=== PATIENT | male | born 1950 | race Caucasian/White ===

== ENCOUNTER 2021-06-11 09:35 | Emergency (ER) | payer BC, OTHER ==
[~2021-06-11] VITALS: Ht 188 cm; Wt 70.8 kg
--- NOTE | 2021-06-11 09:41 | NUR ---
DR BECERRA AT THE BEDSIDE
--- NOTE | 2021-06-11 09:55 | NUR ---
BIBWIFE C/O NAUSEA, VOMITING & DIARRHEA WITH BLOOD X FEW DAYS, DRINKS ALCOHOL EVERYDAY. THE PATIENT IS ALERT AND ORIENTED X3. DENIES PAIN. ABDOMEN SOFT AND NON-DISTENDED. ATTACHED TO THE MONITOR. WARM BLANKET PROVIDED FOR COMFORT. WILL CONTINUE TO MONITOR THE PATIENT.
[2021-06-11] MEDS ORDERED: IV NS 0.9% 1,000 ML BAG IV ONE (10:00)
[2021-06-11] MEDS ORDERED: ONDANSETRON HCL/PF 4 MG/2 ML VIAL IV ONE (10:00)
[2021-06-11] MEDS ORDERED: PANTOPRAZOLE 40 MG VIAL IV ONE (10:00)
[2021-06-11] MEDS ORDERED: ONDANSETRON HCL/PF 4 MG/2 ML VIAL ONE ×2 (10:11→14:39)
[2021-06-11] MEDS ORDERED: FAMOTIDINE/PF INJ 20 MG/2 ML VIAL IV ONE (10:12)
[2021-06-11 10:40] LABS: BASOPHILS # (AUTO) 0.1 K/uL (0.0-0.2); BASOPHILS % (AUTO) 0.5 % (0.0-2.0); EOSINOPHILS % (AUTO) 0.1 % (0.0-6.0); HEMATOCRIT 33 % (39-51); HEMOGLOBIN 10.9 g/dL (13.5-17.5); LYMPHOCYTES % (AUTO) 11.9 % (20.0-44.0); MEAN CORPUSCULAR HGB CONC 34 g/dl (31.0-36.0); MEAN CORPUSCULAR VOLUME 105 fL (80-96); MONOCYTES # (AUTO) 0.5 K/uL (0.1-1.30); MONOCYTES % (AUTO) 3.2 % (2.0-12.0); NEUTROPHILS % (AUTO) 84.3 % (43.0-81.0); PLATELET COUNT (AUTO) 272 K/uL (150-450); WHITE BLOOD COUNT (AUTO) 16.6 K/uL (4.3-11.0)
[2021-06-11 10:56] LABS: ALANINE AMINOTRANSFERASE 10 U/L (12-78); ALBUMIN 3.8 g/dL (3.4-5.0); ALKALINE PHOSPHATASE 53 U/L (46-116); ASPARTATE AMINOTRANSFERASE 11 U/L (15-37); BILIRUBIN,DIRECT 0.1 mg/dL (0.0-0.2); BILIRUBIN,TOTAL 0.6 mg/dL (0.2-1.0); CALCIUM, SERUM 8.9 mg/dL (8.5-10.1); CARBON DIOXIDE 20 mmol/L (21-32); CHLORIDE 108 mmol/L (98-107); CREATININE 1.9 mg/dL (0.6-1.3); GLUCOSE 231 mg/dL (74-106); LIPASE 61 U/L (73-393); POTASSIUM 4.4 mmol/L (3.5-5.1); SODIUM SERUM 143 mmol/L (136-145); TOTAL PROTEIN, SERUM 6.8 g/dL (6.4-8.2); UREA NITROGEN, BLOOD 55 mg/dL (7-18)
[2021-06-11 11:07] LABS: ALCOHOL, BLOOD < 3 mg/dL (0-0)
--- NOTE | 2021-06-11 11:14 | NUR ---
COVID SWAB DONE AND SENT TO THE LAB
--- NOTE | 2021-06-11 11:53 | NUR ---
CALLED [facility] [phone]
--- NOTE | 2021-06-11 11:56 | NUR ---
DR. HUANG FROM [facility] SPEAKING WITH DR. BECERRA.
--- NOTE | 2021-06-11 13:16 | NUR ---
TRANSFER INFO: PATIENT IS ACCEPTED AT [facility] ER UNDER [facility]. [facility] PHONE # FOR REPORT: [phone] AMBULANCE ETA: 1500
[2021-06-11 13:52] LABS: OCCULT BLOOD STOOL POSITIVE (NEGATIVE)
--- NOTE | 2021-06-11 14:29 | NUR ---
RECEIVED AN ORDER FROM DR HERNAN LEWIS 4 MG IV PUSH ONCE. THE ORDER IS READ BACK, VERIFIED. NOTED AND CARRIED OUT.
[2021-06-11] MEDS ORDERED: ONDANSETRON HCL/PF - ER 4 MG/2 ML VIAL IV ONE (14:30)
--- NOTE | 2021-06-11 14:37 | NUR ---
REPORT GIVEN TO NURSE LAN FROM [facility].
[2021-06-11 14:40] VITALS: BP 146/58
--- NOTE | 2021-06-11 16:03 | NUR ---
THE PATIENT IS DISCHARGED TO [facility] IN STABLE CONDITION VIA RRANGED TRANSPO
== END 2021-06-11 16:05 | disposition short-term general hospital (02) ==
LOC: ER 09:40
DX: K92.2 Gastrointestinal hemorrhage, unspecified (principal); R00.0 Tachycardia, unspecified; F10.10 Alcohol abuse, uncomplicated; Y90.0 Blood alcohol level of less than 20 mg/100 ml; N17.9 Acute kidney failure, unspecified; Z20.822 Contact with and (suspected) exposure to COVID-19; E87.2 Acidosis; R73.9 Hyperglycemia, unspecified; D53.9 Nutritional anemia, unspecified; D72.829 Elevated white blood cell count, unspecified; I95.9 Hypotension, unspecified; Z86.19 Personal history of other infectious and parasitic diseases; Z90.49 Acquired absence of other specified parts of digestive tract
CPT/HCPCS: 36415; 71045; 80048; 80076; 80320; 82272; 82962; 83690; 85025; 85730; 86850; 87426; 93005; 96361; 96374; 96375; 96376; 99291; C9803; J2405 ×3; J3490; J7030; G0480

== ENCOUNTER 2024-02-09 18:22 | Emergency (ER) | payer OTHER ==
[~2024-02-09] VITALS: Ht 188 cm; Wt 73.5 kg
[2024-02-09 18:43] LABS: BASOPHILS % (AUTO) 0.6 % (0.0-2.0); EOSINOPHILS # (AUTO) 0.5 K/uL (0.0-0.7); EOSINOPHILS % (AUTO) 5.8 % (0.0-6.0); HEMATOCRIT 44 % (39-51); HEMOGLOBIN 14.9 g/dL (13.5-17.5); LYMPHOCYTES # (AUTO) 3.2 K/uL (0.8-4.8); LYMPHOCYTES % (AUTO) 39.3 % (20.0-44.0); MEAN CORPUSCULAR HEMOGLOBIN 35 PG (26.0-33.0); MEAN CORPUSCULAR HGB CONC 34 g/dl (31.0-36.0); MEAN CORPUSCULAR VOLUME 104 fL (80-96); MONOCYTES # (AUTO) 0.5 K/uL (0.1-1.30); NEUTROPHILS # (AUTO) 3.9 K/uL (1.8-8.9); NEUTROPHILS % (AUTO) 48.3 % (43.0-81.0); PLATELET COUNT (AUTO) 271 K/uL (150-450); RED BLOOD CELL COUNT(AUTO) 4.25 MIL/uL (4.5-6.0); RED CELL DISTRIBUTION WIDTH 14.3 % (11.5-15.0); WHITE BLOOD COUNT (AUTO) 8.1 K/uL (4.3-11.0)
[2024-02-09] MEDS ORDERED: LORAZEPAM INJ 2 MG/ML VIAL ONE (18:43)
[2024-02-09] MEDS ORDERED: METOPROLOL TARTRATE INJ 5 MG/5 ML AMPUL ONE (18:44)
[2024-02-09] MEDS: LORAZEPAM INJ 2 MG/ML VIAL IV ONE (18:51)
[2024-02-09] MEDS: METOPROLOL TARTRATE INJ 5 MG/5 ML AMPUL IV ONE (18:51)
[2024-02-09 18:52] LABS: CARBON DIOXIDE 21 mmol/L (21-32); CHLORIDE 100 mmol/L (98-107); GLUCOSE 92 mg/dL (74-106); POTASSIUM 3.9 mmol/L (3.5-5.1); SODIUM SERUM 134 mmol/L (136-145); UREA NITROGEN, BLOOD 20 mg/dL (7-18)
[2024-02-09 19:08] LABS: NT-PRO BNP 4701 pg/mL (0-125)
[2024-02-09] MEDS ORDERED: IV NS 0.9% 250 ML IV ONE (19:11)
[2024-02-09] MEDS ORDERED: IOHEXOL-350 100 ML VIAL IV ONE (19:11)
[2024-02-09 19:14] LABS: CALCIUM, SERUM 9.6 mg/dL (8.5-10.1)
[2024-02-09 19:37] LABS: THYROID STIMULATING HORMONE 7.388 uIU/mL (0.358-3.74)
[2024-02-09] MEDS ORDERED: ASPIRIN 325 MG TABLET ONE (21:26)
[2024-02-09] MEDS: ASPIRIN 325 MG TABLET PO ONE (21:27)
[2024-02-09 23:26] VITALS: BP 105/60; TEMP 98.1; O2SAT 96
== END 2024-02-09 23:27 | disposition short-term general hospital (02) ==
LOC: ER 18:24
DX: G45.9 Transient cerebral ischemic attack, unspecified (principal); I48.91 Unspecified atrial fibrillation; N17.9 Acute kidney failure, unspecified; Z98.890 Other specified postprocedural states
CPT/HCPCS: 99291; 70498; 96374; 71045; 96375; 99292; 93005; 70496; 85025; 80048; 36415; 84439; 84443; 84484; 83880; J2060; J3490; J7050; Q9967

== ENCOUNTER 2024-03-03 12:18 | Emergency (ER) | payer OTHER ==
[~2024-03-03] VITALS: Ht 193 cm; Wt 68.5 kg
[2024-03-03 12:50] LABS: BASOPHILS # (AUTO) 0.2 K/uL (0.0-0.2); BASOPHILS % (AUTO) 1.2 % (0.0-2.0); EOSINOPHILS # (AUTO) 0.2 K/uL (0.0-0.7); EOSINOPHILS % (AUTO) 1.8 % (0.0-6.0); HEMATOCRIT 32 % (39-51); HEMOGLOBIN 10.8 g/dL (13.5-17.5); LYMPHOCYTES # (AUTO) 3.1 K/uL (0.8-4.8); LYMPHOCYTES % (AUTO) 24.4 % (20.0-44.0); MEAN CORPUSCULAR HEMOGLOBIN 34 PG (26.0-33.0); MEAN CORPUSCULAR HGB CONC 33 g/dl (31.0-36.0); MEAN CORPUSCULAR VOLUME 103 fL (80-96); MONOCYTES # (AUTO) 0.5 K/uL (0.1-1.30); NEUTROPHILS # (AUTO) 8.8 K/uL (1.8-8.9); NEUTROPHILS % (AUTO) 68.6 % (43.0-81.0); PLATELET COUNT (AUTO) 243 K/uL (150-450); RED BLOOD CELL COUNT(AUTO) 3.13 MIL/uL (4.5-6.0); RED CELL DISTRIBUTION WIDTH 13.2 % (11.5-15.0); WHITE BLOOD COUNT (AUTO) 12.8 K/uL (4.3-11.0)
[2024-03-03 13:16] LABS: CALCIUM, SERUM 9.2 mg/dL (8.5-10.1); CARBON DIOXIDE 19 mmol/L (21-32); CHLORIDE 104 mmol/L (98-107); CREATININE 1.9 mg/dL (0.6-1.3); GLUCOSE 153 mg/dL (74-106); POTASSIUM 4.7 mmol/L (3.5-5.1); SODIUM SERUM 139 mmol/L (136-145); UREA NITROGEN, BLOOD 56 mg/dL (7-18)
[2024-03-03] MEDS ORDERED: ONDA4TAB5 PO (13:37)
[2024-03-03 13:44] VITALS: BP 112/66; TEMP 98; O2SAT 99
== END 2024-03-03 13:46 | disposition home or self-care (01) ==
LOC: ER 12:23
DX: F10.10 Alcohol abuse, uncomplicated (principal); R11.0 Nausea; Y90.9 Presence of alcohol in blood, level not specified
CPT/HCPCS: 36415; 71045-TC; 80048-TC; 84484-TC; 85025-TC

== ENCOUNTER 2024-03-04 17:55 | Inpatient (IN) | payer OTHER ==
[~2024-03-04] VITALS: Ht 188 cm; Wt 77.6 kg
[~2024-03-04 17:55] MED LIST: ONDA4TAB5 PO
[2024-03-04] MEDS: IV NS 0.9% 1,000 ML BAG IV ONE (18:47)
[2024-03-04 19:05] LABS: BASOPHILS # (AUTO) 0.1 K/uL (0.0-0.2); EOSINOPHILS % (AUTO) 0.1 % (0.0-6.0); LYMPHOCYTES # (AUTO) 1.3 K/uL (0.8-4.8); MONOCYTES # (AUTO) 0.5 K/uL (0.1-1.30); NEUTROPHILS # (AUTO) 11.3 K/uL (1.8-8.9)
[2024-03-04 19:08] LABS: BASOPHILS % (AUTO) 0.4 % (0.0-2.0); HEMATOCRIT 21 % (39-51); LYMPHOCYTES % (AUTO) 10.1 % (20.0-44.0); MEAN CORPUSCULAR HEMOGLOBIN 35 PG (26.0-33.0); MEAN CORPUSCULAR HGB CONC 33 g/dl (31.0-36.0); MEAN CORPUSCULAR VOLUME 105 fL (80-96); MONOCYTES % (AUTO) 4.1 % (2.0-12.0); NEUTROPHILS % (AUTO) 85.3 % (43.0-81.0); PLATELET COUNT (AUTO) 175 K/uL (150-450); RED BLOOD CELL COUNT(AUTO) 1.96 MIL/uL (4.5-6.0); RED CELL DISTRIBUTION WIDTH 13.5 % (11.5-15.0); WHITE BLOOD COUNT (AUTO) 13.3 K/uL (4.3-11.0)
[2024-03-04 19:10] LABS: HEMOGLOBIN 6.8 g/dL (13.5-17.5)
[2024-03-04 19:19] LABS: ALANINE AMINOTRANSFERASE 17 U/L (12-78); ALBUMIN 3.1 g/dL (3.4-5.0); ALKALINE PHOSPHATASE 40 U/L (46-116); ASPARTATE AMINOTRANSFERASE 11 U/L (15-37); BILIRUBIN,DIRECT 0.1 mg/dL (0.0-0.2); BILIRUBIN,TOTAL 0.2 mg/dL (0.2-1.0); CARBON DIOXIDE 19 mmol/L (21-32); CHLORIDE 109 mmol/L (98-107); CREATININE 2.2 mg/dL (0.6-1.3); GLUCOSE 129 mg/dL (74-106); SODIUM SERUM 138 mmol/L (136-145); TOTAL PROTEIN, SERUM 5.7 g/dL (6.4-8.2); UREA NITROGEN, BLOOD 79 mg/dL (7-18)
[2024-03-04 19:22] LABS: INR 1.07 (0.91-1.10); PARTIAL THROMBOPLASTIN TIME 25.9 SEC (24.3-34.3)
[2024-03-04] MEDS ORDERED: FAMOTIDINE/PF INJ 20 MG/2 ML VIAL IV ONE (20:36)
[2024-03-04] MEDS ORDERED: PANTOPRAZOLE 40 MG VIAL ONE ×2 (20:36→20:56)
[2024-03-04] MEDS: PANTOPRAZOLE 80 MG in IV NS 0.9% 100 ML IV ONE ×2 (20:47→20:50)
[2024-03-04] MEDS: PANTOPRAZOLE 40 MG VIAL IV ONE (20:47)
[2024-03-04] MEDS: FAMOTIDINE/PF INJ 40 MG in IV D5W 50 ML IV ONE (20:54)
[2024-03-04] MEDS: PANTOPRAZOLE 80 MG in IV NS 0.9% 500 ML IV PRN (21:17)
[2024-03-04] MEDS ORDERED: HUM PROTHROMBIN CPLX(PCC)-LANS 500 UNIT VIAL IV ONE (21:30)
[2024-03-04] MEDS: HUM PROTHROMBIN CPLX(PCC)-LANS 500 UNIT VIAL IV ONE (21:41)
[2024-03-04 22:14] LABS: BAND % (MANUAL) 1 % (0.0-5.0); LYMPHOCYTES % (MANUAL) 10 % (16-48); MONOCYTES % (MANUAL) 5 % (0-11.0); NEUTROPHILS % (MANUAL) 84 (42-76)
[2024-03-04 22:15] LABS: ANISOCYTOSIS 1+; PLATELET ESTIMATE ADEQU; TARGET CELLS 1+; TEAR DROP CELLS RARE
[2024-03-04] MEDS: IV NS 0.9% 1,000 ML IV PRN (23:04)
[2024-03-04 23:30] VITALS: BP 79/54; O2SAT 100
[2024-03-04 23:32] LABS: HEMOGLOBIN 5.8 g/dL (13.5-17.5)
[2024-03-04 23:36] VITALS: BP 85/60; O2SAT 100
[2024-03-04 23:40] LABS: ALBUMIN 2.6 g/dL (3.4-5.0); BILIRUBIN,DIRECT 0.1 mg/dL (0.0-0.2); BILIRUBIN,TOTAL 0.2 mg/dL (0.2-1.0); TOTAL PROTEIN, SERUM 5.2 g/dL (6.4-8.2)
[2024-03-04] MEDS: OCTREOTIDE 500 MCG/ML VIAL ONE (23:42)
[2024-03-04] MEDS: OCTREOTIDE 1,250 MCG in IV NS 0.9% 247.5 ML IV PRN (23:47)
[2024-03-05] VITALS (81 sets, daily range): BP systolic 77–127; BP diastolic 48–95; TEMP 97.3–98.8; O2SAT 95–100
[2024-03-05] MEDS ORDERED: AMIO200T5 PO (01:13)
[2024-03-05] MEDS ORDERED: PANT40TA49 PO (01:13)
[2024-03-05] MEDS ORDERED: DABI150C PO (01:13)
[2024-03-05] MEDS ORDERED: ATOR40TA PO (01:13)
[2024-03-05] MEDS ORDERED: METO25TA6 PO (01:13)
[2024-03-05] MEDS ORDERED: ONDA4TAB5 PO (01:13)
[2024-03-05] MEDS: PIPERACILLIN /TAZOBACTAM 3.375 G in IVPB D5W FOR ZOSYN 50 ML IV ONE (03:29)
[2024-03-05] MEDS: PIPERACI/TAZO 3.375GM/D5W 50ML PB IV ONE (03:42)
[2024-03-05] MEDS: ONDANSETRON HCL/PF 4 MG/2 ML VIAL IVP PRN (03:43)
[2024-03-05] MEDS ORDERED: MIDAZOLAM HCL 2 MG/2ML VIAL ONE (05:48)
[2024-03-05 05:50] LABS: BASOPHILS # (AUTO) 0.1 K/uL (0.0-0.2); EOSINOPHILS % (AUTO) 0.3 % (0.0-6.0); LYMPHOCYTES # (AUTO) 1.4 K/uL (0.8-4.8); LYMPHOCYTES % (AUTO) 15.5 % (20.0-44.0); MEAN CORPUSCULAR HEMOGLOBIN 33 PG (26.0-33.0); MEAN CORPUSCULAR HGB CONC 34 g/dl (31.0-36.0); MEAN CORPUSCULAR VOLUME 98 fL (80-96); MONOCYTES # (AUTO) 0.5 K/uL (0.1-1.30); MONOCYTES % (AUTO) 5.2 % (2.0-12.0); NEUTROPHILS # (AUTO) 7.1 K/uL (1.8-8.9); PLATELET COUNT (AUTO) 138 K/uL (150-450); RED CELL DISTRIBUTION WIDTH 19.6 % (11.5-15.0); WHITE BLOOD COUNT (AUTO) 9.1 K/uL (4.3-11.0)
[2024-03-05 06:14] LABS: RED BLOOD CELL COUNT(AUTO) 1.87 MIL/uL (4.5-6.0)
[2024-03-05 06:15] LABS: CALCIUM, SERUM 7.2 mg/dL (8.5-10.1); CARBON DIOXIDE 23 mmol/L (21-32); CHLORIDE 112 mmol/L (98-107); CREATININE 2.1 mg/dL (0.6-1.3); GLUCOSE 114 mg/dL (74-106); MAGNESIUM 1.7 mg/dL (1.8-2.4); PHOSPHORUS 4.1 mg/dL (2.5-4.9); POTASSIUM 4.8 mmol/L (3.5-5.1); SODIUM SERUM 142 mmol/L (136-145); UREA NITROGEN, BLOOD 67 mg/dL (7-18)
[2024-03-05 06:16] LABS: HEMATOCRIT 18 % (39-51); HEMOGLOBIN 6.2 g/dL (13.5-17.5)
[2024-03-05] MEDS ORDERED: FLUMAZENIL 0.5 MG VIAL ONE (06:28)
[2024-03-05 06:48] LABS: NEUTROPHILS % (MANUAL) 81 (42-76)
[2024-03-05 06:49] LABS: ANISOCYTOSIS 1+; BASOPHILS % (MANUAL) 0 % (0.0-2.0); EOSINOPHILS % (MANUAL) 0 % (0-4); LYMPHOCYTES % (MANUAL) 13 % (16-48); MONOCYTES % (MANUAL) 6 % (0-11.0); PLATELET ESTIMATE DECREASED
[2024-03-05 07:52] LABS: APPEARANCE,URINE CLEAR (CLEAR); BILIRUBIN,URINE NEGATIVE (NEGATIVE); BLOOD, URINE NEGATIVE Ery/uL (NEGATIVE); COLOR,URINE YELLOW (YELLOW); KETONES,URINE TRACE mg/dL (NEGATIVE); LEUKOCYTE ESTERASE ,URINE TRACE (NEGATIVE); NITRITE, URINE NEGATIVE (NEGATIVE); PH,URINE 5.5 (5.0-8.0); PROTEIN,URINE NEGATIVE (NEGATIVE); UGLUCOSE NEGATIVE (NEGATIVE); UROBILINOGEN,URINE 0.2 EU/dL (0.2)
[2024-03-05] MEDS: PIPERACILLIN /TAZOBACTAM 3.375 G in IV D5W 100 ML IV SCH (07:56)
[2024-03-05 07:58] LABS: ADD URINE CULTURE NO; BACTERIA,URINE Rare /HPF (None Seen); RBC,URINE 0-2 /HPF (0-2); SQUAMOUS EPITHELIAL CELL,UR Rare /HPF (None Seen)
[2024-03-05] MEDS: PANTOPRAZOLE 40 MG VIAL IV SCH (08:04)
[2024-03-05] MEDS: Magnesium 1GM/D5W 100ML PREMIX 100 ML IV SCH (09:29)
[2024-03-05 09:41] LABS: CREATININE, URINE 60.1 MG/DL (30.0-125.0); URINE TOTAL PROTEIN 13.4 mg/dL (0-11.9)
[2024-03-05 10:19] LABS: HEMOGLOBIN 6.6 g/dL (13.5-17.5)
[2024-03-05] MEDS: PROCHLORPERAZINE EDISYLATE 10 MG/2 ML VIAL IVP PRN (12:22)
[2024-03-05 15:30] LABS: BASOPHILS # (AUTO) 0.1 K/uL (0.0-0.2); BASOPHILS % (AUTO) 0.8 % (0.0-2.0); EOSINOPHILS # (AUTO) 0.1 K/uL (0.0-0.7); EOSINOPHILS % (AUTO) 0.8 % (0.0-6.0); HEMATOCRIT 23 % (39-51); HEMOGLOBIN 7.6 g/dL (13.5-17.5); LYMPHOCYTES % (AUTO) 14.4 % (20.0-44.0); MEAN CORPUSCULAR HEMOGLOBIN 33 PG (26.0-33.0); MEAN CORPUSCULAR HGB CONC 34 g/dl (31.0-36.0); MEAN CORPUSCULAR VOLUME 99 fL (80-96); MONOCYTES # (AUTO) 0.9 K/uL (0.1-1.30); MONOCYTES % (AUTO) 6.8 % (2.0-12.0); NEUTROPHILS # (AUTO) 10.5 K/uL (1.8-8.9); NEUTROPHILS % (AUTO) 77.2 % (43.0-81.0); PLATELET COUNT (AUTO) 121 K/uL (150-450); RED BLOOD CELL COUNT(AUTO) 2.29 MIL/uL (4.5-6.0); RED CELL DISTRIBUTION WIDTH 18.6 % (11.5-15.0); WHITE BLOOD COUNT (AUTO) 13.6 K/uL (4.3-11.0)
[2024-03-05] MEDS ORDERED: THIA100T74 PO (19:20)
[2024-03-05] MEDS ORDERED: TEMA7.5C12 PO (19:20)
[2024-03-05] MEDS ORDERED: FOLI0.4T6 PO (19:20)
[2024-03-05] MEDS ORDERED: CEPH250C PO (19:23)
[2024-03-05 20:23] LABS: BASOPHILS # (AUTO) 0.1 K/uL (0.0-0.2); EOSINOPHILS # (AUTO) 0.1 K/uL (0.0-0.7); EOSINOPHILS % (AUTO) 1.2 % (0.0-6.0); LYMPHOCYTES # (AUTO) 1.3 K/uL (0.8-4.8); LYMPHOCYTES % (AUTO) 13.3 % (20.0-44.0); MEAN CORPUSCULAR HEMOGLOBIN 34 PG (26.0-33.0); MEAN CORPUSCULAR HGB CONC 35 g/dl (31.0-36.0); MEAN CORPUSCULAR VOLUME 96 fL (80-96); MONOCYTES # (AUTO) 0.6 K/uL (0.1-1.30); MONOCYTES % (AUTO) 6.2 % (2.0-12.0); NEUTROPHILS # (AUTO) 7.7 K/uL (1.8-8.9); NEUTROPHILS % (AUTO) 78.3 % (43.0-81.0); PLATELET COUNT (AUTO) 111 K/uL (150-450); RED CELL DISTRIBUTION WIDTH 18.3 % (11.5-15.0); WHITE BLOOD COUNT (AUTO) 9.8 K/uL (4.3-11.0)
[2024-03-05 20:29] LABS: RED BLOOD CELL COUNT(AUTO) 1.89 MIL/uL (4.5-6.0)
[2024-03-05 20:40] LABS: HEMOGLOBIN 6.4 g/dL (13.5-17.5)
[2024-03-05 20:41] LABS: HEMATOCRIT 18 % (39-51)
[2024-03-05] MEDS ORDERED: TEMA15CA PO (20:50)
[2024-03-05 20:52] LABS: BAND % (MANUAL) 2 % (0.0-5.0); LYMPHOCYTES % (MANUAL) 15 % (16-48); MONOCYTES % (MANUAL) 6 % (0-11.0)
[2024-03-05 20:53] LABS: EOSINOPHILS % (MANUAL) 1 % (0-4); NEUTROPHILS % (MANUAL) 76 (42-76)
[2024-03-05 20:54] LABS: PLATELET ESTIMATE DECREASED
[2024-03-05] MEDS: TEMAZEPAM 15 MG CAPSULE PO PRN (21:40)
[2024-03-06] VITALS (74 sets, daily range): BP systolic 74–125; BP diastolic 49–80; TEMP 97.5–99.1; O2SAT 96–100
[2024-03-06] MEDS: NOREPINEPHRINE 8MG/250ML RTU 250 ML IV ONE (05:06)
[2024-03-06] MEDS: NOREPINEPHRINE 8 MG in IV D5W 242 ML IV PRN (05:08)
[2024-03-06 05:14] LABS: BASOPHILS # (AUTO) 0.1 K/uL (0.0-0.2); BASOPHILS % (AUTO) 0.8 % (0.0-2.0); EOSINOPHILS # (AUTO) 0.2 K/uL (0.0-0.7); EOSINOPHILS % (AUTO) 2.3 % (0.0-6.0); HEMATOCRIT 21 % (39-51); HEMOGLOBIN 7.3 g/dL (13.5-17.5); LYMPHOCYTES # (AUTO) 1.3 K/uL (0.8-4.8); LYMPHOCYTES % (AUTO) 14.1 % (20.0-44.0); MEAN CORPUSCULAR HEMOGLOBIN 33 PG (26.0-33.0); MEAN CORPUSCULAR HGB CONC 36 g/dl (31.0-36.0); MEAN CORPUSCULAR VOLUME 93 fL (80-96); MONOCYTES # (AUTO) 0.7 K/uL (0.1-1.30); MONOCYTES % (AUTO) 8.1 % (2.0-12.0); NEUTROPHILS # (AUTO) 6.7 K/uL (1.8-8.9); NEUTROPHILS % (AUTO) 74.7 % (43.0-81.0); PLATELET COUNT (AUTO) 97 K/uL (150-450); RED BLOOD CELL COUNT(AUTO) 2.22 MIL/uL (4.5-6.0); RED CELL DISTRIBUTION WIDTH 17.8 % (11.5-15.0)
[2024-03-06 06:18] LABS: CREATINE KINASE, TOTAL 41 U/L (39-308)
[2024-03-06 06:37] LABS: ALANINE AMINOTRANSFERASE 12 U/L (12-78); ALKALINE PHOSPHATASE 35 U/L (46-116); ASPARTATE AMINOTRANSFERASE 9 U/L (15-37); BILIRUBIN,TOTAL 0.6 mg/dL (0.2-1.0); CALCIUM, SERUM 7.5 mg/dL (8.5-10.1); CARBON DIOXIDE 20 mmol/L (21-32); CHLORIDE 114 mmol/L (98-107); CREATININE 1.6 mg/dL (0.6-1.3); GLUCOSE 114 mg/dL (74-106); PHOSPHORUS 3.5 mg/dL (2.5-4.9); POTASSIUM 4.3 mmol/L (3.5-5.1); SODIUM SERUM 144 mmol/L (136-145); TOTAL PROTEIN, SERUM 4.2 g/dL (6.4-8.2); UREA NITROGEN, BLOOD 44 mg/dL (7-18)
[2024-03-06 13:28] LABS: HEMOGLOBIN 6.8 g/dL (13.5-17.5)
[2024-03-07] VITALS (74 sets, daily range): BP systolic 79–130; BP diastolic 49–80; TEMP 97.5–98.8; O2SAT 94–100
[2024-03-07] MEDS: ACETAMINOPHEN 325 MG TABLET PO PRN (01:08)
[2024-03-07 07:53] LABS: BASOPHILS % (AUTO) 0.5 % (0.0-2.0); EOSINOPHILS # (AUTO) 0.1 K/uL (0.0-0.7); EOSINOPHILS % (AUTO) 1.5 % (0.0-6.0); HEMATOCRIT 23 % (39-51); LYMPHOCYTES # (AUTO) 1.2 K/uL (0.8-4.8); LYMPHOCYTES % (AUTO) 13.9 % (20.0-44.0); MEAN CORPUSCULAR HEMOGLOBIN 32 PG (26.0-33.0); MEAN CORPUSCULAR HGB CONC 34 g/dl (31.0-36.0); MEAN CORPUSCULAR VOLUME 94 fL (80-96); MONOCYTES # (AUTO) 0.7 K/uL (0.1-1.30); NEUTROPHILS # (AUTO) 6.6 K/uL (1.8-8.9); NEUTROPHILS % (AUTO) 76.1 % (43.0-81.0); PLATELET COUNT (AUTO) 108 K/uL (150-450); RED CELL DISTRIBUTION WIDTH 17.7 % (11.5-15.0); WHITE BLOOD COUNT (AUTO) 8.6 K/uL (4.3-11.0)
[2024-03-07 08:02] LABS: CALCIUM, SERUM 7.8 mg/dL (8.5-10.1); CARBON DIOXIDE 23 mmol/L (21-32); CHLORIDE 114 mmol/L (98-107); CREATININE 1.7 mg/dL (0.6-1.3); GLUCOSE 97 mg/dL (74-106); POTASSIUM 3.6 mmol/L (3.5-5.1); SODIUM SERUM 143 mmol/L (136-145); UREA NITROGEN, BLOOD 28 mg/dL (7-18)
[2024-03-07 08:06] LABS: PTH, INTACT 78 pg/mL (15-65)
[2024-03-07] MEDS ORDERED: CYCLOBENZAPRINE 10 MG TABLET PO PRN (09:00)
[2024-03-07 14:54] LABS: BASOPHILS # (AUTO) 0.1 K/uL (0.0-0.2); BASOPHILS % (AUTO) 0.9 % (0.0-2.0); EOSINOPHILS # (AUTO) 0.1 K/uL (0.0-0.7); EOSINOPHILS % (AUTO) 1.5 % (0.0-6.0); HEMATOCRIT 23 % (39-51); HEMOGLOBIN 8.2 g/dL (13.5-17.5); LYMPHOCYTES # (AUTO) 1.5 K/uL (0.8-4.8); LYMPHOCYTES % (AUTO) 18.2 % (20.0-44.0); MEAN CORPUSCULAR HEMOGLOBIN 33 PG (26.0-33.0); MEAN CORPUSCULAR HGB CONC 35 g/dl (31.0-36.0); MEAN CORPUSCULAR VOLUME 95 fL (80-96); MONOCYTES # (AUTO) 0.6 K/uL (0.1-1.30); NEUTROPHILS # (AUTO) 6.1 K/uL (1.8-8.9); NEUTROPHILS % (AUTO) 72.4 % (43.0-81.0); PLATELET COUNT (AUTO) 116 K/uL (150-450); RED BLOOD CELL COUNT(AUTO) 2.46 MIL/uL (4.5-6.0); RED CELL DISTRIBUTION WIDTH 17.9 % (11.5-15.0); WHITE BLOOD COUNT (AUTO) 8.5 K/uL (4.3-11.0)
[2024-03-07 15:10] LABS: *SPE A/G RATIO 1.4 (0.7-1.7); *SPE ALBUMIN 2.3 g/dL (2.9-4.4); *SPE ALPHA-1-GLOBULIN 0.2 g/dL (0.0-0.4); *SPE ALPHA-2-GLOBULIN 0.3 g/dL (0.4-1.0); *SPE BETA GLOBULIN 0.6 g/dL (0.7-1.3); *SPE GLOBULIN, TOTAL 1.7 g/dL (2.2-3.9); *SPE M-SPIKE Not Observed g/dL (Not Observed); *SPEGAMMA GLOBULIN 0.5 g/dL (0.4-1.8)
[2024-03-07 15:24] LABS: CALCIUM, SERUM 8.1 mg/dL (8.5-10.1); CARBON DIOXIDE 20 mmol/L (21-32); CHLORIDE 115 mmol/L (98-107); CREATININE 1.4 mg/dL (0.6-1.3); GLUCOSE 88 mg/dL (74-106); POTASSIUM 4.3 mmol/L (3.5-5.1); SODIUM SERUM 145 mmol/L (136-145); UREA NITROGEN, BLOOD 24 mg/dL (7-18)
== END 2024-03-07 19:00 | disposition short-term general hospital (02) | DRG 377 ==
LOC: ER 18:04 → ICU 21:44 → UNDODISIN 03-07 20:23
PROVIDERS: ADMIT Nurse Practitioner Acute Care; ATTEND Internal Medicine
PROC: 0DB68ZX Excision of Stomach, Via Natural or Artificial Opening Endoscopic, Diagnostic (ICD-10-PCS; principal; 2024-03-05)
PROC: 30233N1 Transfusion of Nonautologous Red Blood Cells into Peripheral Vein, Percutaneous Approach (ICD-10-PCS; 2024-03-05)
DX: K29.71 Gastritis, unspecified, with bleeding (principal); N17.0 Acute kidney failure with tubular necrosis; R57.1 Hypovolemic shock; E44.1 Mild protein-calorie malnutrition; D68.9 Coagulation defect, unspecified; N18.9 Chronic kidney disease, unspecified; I48.91 Unspecified atrial fibrillation; Z86.73 Personal history of transient ischemic attack (TIA), and cerebral infarction without residual deficits; Z87.19 Personal history of other diseases of the digestive system; Z86.19 Personal history of other infectious and parasitic diseases; Z98.890 Other specified postprocedural states; Z90.49 Acquired absence of other specified parts of digestive tract; F10.10 Alcohol abuse, uncomplicated; Y90.0 Blood alcohol level of less than 20 mg/100 ml; D72.829 Elevated white blood cell count, unspecified; D64.9 Anemia, unspecified; E88.09 Other disorders of plasma-protein metabolism, not elsewhere classified; I09.89 Other specified rheumatic heart diseases; Z79.02 Long term (current) use of antithrombotics/antiplatelets; Z87.11 Personal history of peptic ulcer disease
CPT/HCPCS: 36415; 71045-TC; 76700-TC; 80048-TC; 80053-TC; 80076-TC; 81001; 82550-TC; 82570-TC; 82962-TC; 83735-TC; 83970; 84100-TC; 84155; 84165; 84300-TC; 84484-TC; 85025-TC; 85027-TC; 85730-TC; 86850-TC; 87040-TC; 87081-TC; 87086-TC; 88305-TC; 88313-TC; 88342; 93307-TC; 94799-TC; A4223; A9560; C9113; G0378; G0480; J0780; J2250; J2354; J2405; J2543; J2704; J3475; J3490; J7030; J7040; J7050; J7060; J7209; P9016

== ENCOUNTER 2024-07-18 17:32 | Emergency (ER) | payer OTHER ==
[~2024-07-18] VITALS: Ht 188 cm; Wt 77.1 kg
[~2024-07-18 17:32] MED LIST changes: +AMIO200T5 PO; +ATOR40TA PO; +CEPH250C PO; +DABI150C PO; +FOLI0.4T6 PO; +METO25TA6 PO; +PANT40TA49 PO; +TEMA15CA PO; +THIA100T74 PO
[2024-07-18 17:46] VITALS: TEMP 97.8
[2024-07-18 18:19] LABS: BASOPHILS # (AUTO) 0.1 K/uL (0.0-0.2); EOSINOPHILS # (AUTO) 0.6 K/uL (0.0-0.7); EOSINOPHILS % (AUTO) 7.2 % (0.0-6.0); HEMATOCRIT 27 % (39-51); HEMOGLOBIN 9.1 g/dL (13.5-17.5); LYMPHOCYTES % (AUTO) 22.3 % (20.0-44.0); MEAN CORPUSCULAR HEMOGLOBIN 31 PG (26.0-33.0); MEAN CORPUSCULAR HGB CONC 33 g/dl (31.0-36.0); MEAN CORPUSCULAR VOLUME 92 fL (80-96); MONOCYTES # (AUTO) 0.7 K/uL (0.1-1.30); MONOCYTES % (AUTO) 7.3 % (2.0-12.0); NEUTROPHILS # (AUTO) 5.6 K/uL (1.8-8.9); NEUTROPHILS % (AUTO) 62.2 % (43.0-81.0); PLATELET COUNT (AUTO) 308 K/uL (150-450); RED BLOOD CELL COUNT(AUTO) 2.97 MIL/uL (4.5-6.0)
[2024-07-18 18:30] LABS: CALCIUM, SERUM 9.4 mg/dL (8.5-10.1); CARBON DIOXIDE 26 mmol/L (21-32); CHLORIDE 99 mmol/L (98-107); CREATININE 1.8 mg/dL (0.6-1.3); GLUCOSE 87 mg/dL (74-106); POTASSIUM 4.5 mmol/L (3.5-5.1); SODIUM SERUM 133 mmol/L (136-145); UREA NITROGEN, BLOOD 28 mg/dL (7-18)
[2024-07-18 18:31] LABS: INR 0.96 (0.91-1.10); PARTIAL THROMBOPLASTIN TIME 23.4 SEC (24.3-34.3); PROTHROMBIN TIME 9.9 SECS (9.2-11.1)
[2024-07-18 19:12] VITALS: BP 125/94; O2SAT 99
== END 2024-07-18 21:17 | disposition short-term general hospital (02) ==
LOC: ER 17:39
DX: K92.2 Gastrointestinal hemorrhage, unspecified (principal); D64.9 Anemia, unspecified; Z90.49 Acquired absence of other specified parts of digestive tract; Z98.890 Other specified postprocedural states; Z79.899 Other long term (current) drug therapy; Z79.02 Long term (current) use of antithrombotics/antiplatelets; Z86.73 Personal history of transient ischemic attack (TIA), and cerebral infarction without residual deficits
CPT/HCPCS: 36415; 80048-TC; 85025-TC; 85730-TC; 86850-TC

== ENCOUNTER 2025-09-28 08:38 | Emergency (ER) | payer OTHER ==
[~2025-09-28] VITALS: Ht 188 cm; Wt 77.1 kg
[2025-09-28] MEDS ORDERED: ONDANSETRON HCL/PF 4 MG/2 ML VIAL ONE (08:59)
[2025-09-28] MEDS ORDERED: PANTOPRAZOLE 40 MG VIAL ONE (08:59)
[2025-09-28] MEDS: IV NS 0.9% 1,000 ML BAG IV ONE ×2 (09:00→11:05)
[2025-09-28] MEDS: ONDANSETRON HCL/PF 4 MG/2 ML VIAL IVP ONE (09:00)
[2025-09-28] MEDS: PANTOPRAZOLE 40 MG VIAL IV ONE (09:26)
[2025-09-28 10:20] LABS: PLATELET COUNT (AUTO) 232 K/uL (150-450); RED BLOOD CELL COUNT(AUTO) 2.45 MIL/uL (4.5-6.0); RED CELL DISTRIBUTION WIDTH 19.9 % (11.5-15.0); WHITE BLOOD COUNT (AUTO) 16.0 K/uL (4.3-11.0)
[2025-09-28 10:33] LABS: INR 1.08 (0.91-1.10)
[2025-09-28 10:43] LABS: LACTIC ACID 4.2 mmol/L (0.4-2.0)
[2025-09-28 10:46] LABS: ASPARTATE AMINOTRANSFERASE 11 U/L (15-37); CALCIUM, SERUM 7.6 mg/dL (8.5-10.1); CREATININE 2.0 mg/dL (0.6-1.3); SODIUM SERUM 142 mmol/L (136-145); TOTAL PROTEIN, SERUM 6.0 g/dL (6.4-8.2)
[2025-09-28 10:47] LABS: UREA NITROGEN, BLOOD 87 mg/dL (7-18)
[2025-09-28] MEDS ORDERED: PIPERACI/TAZO 3.375GM/D5W 50ML PB IV ONE (10:57)
[2025-09-28] MEDS: PIPERACILLIN /TAZOBACTAM 3.375 G in IV D5W 50 ML IV ONE (11:05)
[2025-09-28 12:31] LABS: APPEARANCE,URINE CLEAR (CLEAR); BLOOD, URINE NEGATIVE Ery/uL (NEGATIVE); LEUKOCYTE ESTERASE ,URINE TRACE (NEGATIVE); NITRITE, URINE POSITIVE (NEGATIVE); UGLUCOSE NEGATIVE (NEGATIVE)
[2025-09-28 12:36] LABS: ADD URINE CULTURE YES; SQUAMOUS EPITHELIAL CELL,UR 0-2 /HPF (None Seen)
[2025-09-28 16:42] VITALS: BP 116/82; TEMP 98.2; O2SAT 99
== END 2025-09-28 18:36 | disposition short-term general hospital (02) ==
LOC: ER 08:38
DX: A41.9 Sepsis, unspecified organism (principal); R65.21 Severe sepsis with septic shock; T68.XXXA Hypothermia, initial encounter; K52.9 Noninfective gastroenteritis and colitis, unspecified; D64.9 Anemia, unspecified; Z86.19 Personal history of other infectious and parasitic diseases; Z86.73 Personal history of transient ischemic attack (TIA), and cerebral infarction without residual deficits; Z90.49 Acquired absence of other specified parts of digestive tract; Z79.899 Other long term (current) drug therapy; Z98.890 Other specified postprocedural states
CPT/HCPCS: 99291; 74176; 96365; 96375; 71045; 93005 ×2; 85025; 80048; 87077; 87040 ×2; 87086; 83605 ×2; 83690; 80076; 87186; 81001; 36415; 84484; 85730; 87081; 86850; J2405; J2543 ×2; J7060; J7030 ×2; J2470